=== PATIENT | male | born 1990 | race Caucasian/White ===

== ENCOUNTER 2016-08-31 00:57 | Emergency (ER) | payer OTHER ==
[2016-08-31 01:06] VITALS: O2SAT 97
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
[2016-08-31 03:03] VITALS: BP 144/87; PULSE 95; RESP 20; TEMP 98.1
== END 2016-09-09 08:20 | disposition home or self-care (01) ==
LOC: EDUNIT#
PROC: 0HQ0XZZ Repair Scalp Skin, External Approach (ICD-10-PCS; principal; 2016-08-31)
DX: S01.01XA Laceration without foreign body of scalp, initial encounter (principal); V18.0XXA Pedal cycle driver injured in noncollision transport accident in nontraffic accident, initial encounter